=== PATIENT | female | born 1960 | race Caucasian/White ===

== ENCOUNTER 2017-02-16 05:56 | Inpatient (IN) | payer OTHER ==
[2016-12-25 11:50] VITALS: BMI 31.0
--- NOTE | 2016-12-25 12:23 | PAT Medication Instructions ---
Service Date Dec 25, 2016. Current Home Medication List Acetaminophen (Tylenol), 500 MG PO PRN Medication Instructions For Your Scheduled Surgery - Take the following medications the morning of surgery with a sip of water OTHERWISE NOTHING TO EAT OR DRINK AFTER MIDNIGHT: Acetaminophen (Tylenol), 500 MG PO PRN (may take if needed up to 4 hours prior to surgery) If you have any questions please call us at [phone] or [phone] or [phone]
--- NOTE | 2016-12-25 12:55 | DIAGNOSTIC IMAGING REPORT ---
CHEST PREADMISSION(PA/LAT) HISTORY: 56 years-old Female PAT preadmission exam. No acute chest complaints. COMPARISON: None available TECHNIQUE: Frontal and lateral views of the chest FINDINGS: Cardiomediastinal and hilar silhouettes are within normal limits. No pneumothorax, pleural effusion, focal airspace consolidation or overt pulmonary edema. Multilevel degenerative changes of the spine. Cholecystectomy clips. IMPRESSION: No acute cardiopulmonary process. The above report was generated using voice recognition software. It may contain grammatical, syntax or spelling errors. Electronically signed by: Rajiv Oshea M.D. 12/25/2016 12:54 PM Dictated Date/Time: 12/25/2016 12:51 PM
[2016-12-25 13:05] LABS: BASO % 0.7 %; BASO ABS # 0.04 K/uL (0-0.2); COMPLETE YES; EOS % 0.9 %; HEMATOCRIT 43.6 % (37-47); IG% 0.2 %; LYMPH % 38.6 %; LYMPH ABS # 2.15 K/uL (1.2-3.4); MEAN CELL VOLUME 94.4 fL (80-100); MEAN CORPUSCULAR HEMOGLOBIN 32.3 pg (25-34); MEAN CORPUSCULAR HGB CONC 34.2 g/dl (32-36); MEAN PLATELET VOLUME 11.1 fL (7.4-10.4); MONO % 5.4 %; NEUT % 54.2 %; PLATELET COUNT 151 K/uL (130-400); RED BLOOD COUNT 4.62 M/uL (4.2-5.4); WHITE BLOOD COUNT 5.57 K/uL (4.8-10.8)
[2016-12-25 13:15] LABS: BUN/CREATININE RATIO 8.9 (10-20); CALCIUM 8.9 mg/dl (8.5-10.1); CREATININE 0.94 mg/dl (0.60-1.20); POTASSIUM 3.9 mmol/L (3.5-5.1)
[2016-12-25 13:17] LABS: URINE APPEARANCE CLEAR (CLEAR); URINE BILIRUBIN NEG (NEG); URINE COLOR YELLOW; URINE EPITHELIAL CELL AUTO >30 /lpf (0-5); URINE NITRITE NEG (NEG); URINE PH 5.5 (4.5-7.5); URINE SPECIFIC GRAVITY 1.015 (1.000-1.030); UROBILINOGEN NEG (NEG)
[2016-12-25 13:18] LABS: MANUAL MICROSCOPIC REQUIRED? NO; PARTIAL THROMBOPLASTIN RATIO 1.1; PROTHROMBIN TIME (PATIENT) 10.6 SECONDS (9.0-12.0); REVIEW REQ? NO
[2016-12-25 13:30] LABS: ESTIMATED AVERAGE GLUCOSE 105 mg/dl; HA1C FLAG Normal (Normal)
--- NOTE | 2016-12-30 13:36 | HISTORY & PHYSICAL EXAMINATION ---
DATE OF ADMISSION: 01/19/2017 CHIEF COMPLAINT: Bilateral knee pain. HISTORY OF PRESENT ILLNESS: Ms. Lunsford is a 56-year-old female with a long-term history of bilateral knee pain. She states her left knee has always bothered her on and off over the years. Right knee was injured when she fell at work in September of 2016 at a personal [employer]. The patient has been through injections, bracing, NSAIDs and physical therapy without relief. She has failed conservative treatment and is scheduled for bilateral knee replacement. PAST MEDICAL HISTORY: Anxiety. She denies heart disease, diabetes or DVT. PAST SURGICAL HISTORY: Cholecystectomy and tubal ligation. SOCIAL HISTORY: The patient drinks 5 drinks per week. She smokes half pack a day x15 years. She lives in a single story home in [place]. She is currently staying with her son and his . Locally, they have no restrictions. FAMILY HISTORY: Negative for DVT. MEDICATIONS: None. ALLERGIES: None. REVIEW OF SYSTEMS: See HPI. Ten other systems reviewed, all negative. PHYSICAL EXAMINATION: VITAL SIGNS: Height 6 feet 1 inch, weight 240 pounds, and BMI 32. GENERAL: This is a well-developed and well-nourished female who is alert and oriented x3. Mood and affect are appropriate. HEENT: Normocephalic and atraumatic. Mucous membranes are moist and intact. NECK: Supple without lymphadenopathy. HEART: Regular rate and rhythm without murmurs, rubs or gallops. LUNGS: Clear to auscultation without wheezes or rhonchi. ABDOMEN: Soft and nontender. Bowel sounds are equal and active. EXTREMITIES: No ecchymosis, redness or warmth. Right knee shows varus deformity. Range of motion is from 3-110 degrees with +1 laxity. She has moderate effusion. She is neurovascularly intact. Left knee shows varus deformity. Range of motion is from 10-110 degrees with no laxity. She has moderate effusion. She is neurovascularly intact. X-RAY EXAMINATION: AP and lateral views show joint space narrowing and osteophyte formation. IMPRESSION: Degenerative joint disease, bilateral knees. PLAN: The patient will be admitted for bilateral total knee arthroplasty. We discussed smoking cessation. She is going to plan on aspirin for DVT prophylaxis. She is going to have home physical therapy in [place] with her family postoperatively.
--- NOTE | 2017-02-15 12:01 | HISTORY & PHYSICAL EXAMINATION ---
DATE OF ADMISSION: 02/16/2017 PREOPERATIVE HISTORY AND PHYSICAL HISTORY OF PRESENT ILLNESS: The patient presents for left total knee arthroplasty. She has failed attempts at conservative management. She presents with severe tricompartmental degenerative joint disease involving her left knee. She is a 56-year-old white female with well known history of knee pain. She states he left knee does always bother her, off and on over the years. She has had previous right knee complaints as well. Her left knee is the worse. PAST MEDICAL HISTORY: Significant for anxiety. She denies heart disease, diabetes or DVT. Past medical history is otherwise unremarkable. PAST SURGICAL HISTORY: Significant for cholecystectomy, tubal ligation. SOCIAL HISTORY: The patient relates drinking 5 drinks per week. She smokes a half a pack of cigarettes a day for 15 years. She lives in a single chan home She is currently staying with her son FAMILY HISTORY: Otherwise, negative for DVT. MEDICATIONS: None. ALLERGIES: None. REVIEW OF SYSTEMS: Otherwise, unremarkable. See history of present illness for pertinent positives. PHYSICAL EXAMINATION: GENERAL: Reveals a very pleasant 6 feet 1 inch, 240-pound white female, 56 years old, alert and oriented x3. HEENT: Atraumatic, normocephalic. HEART: Show regular at 70 beats per minute. No murmurs noted. LUNGS: Clear. No rales, rhonchi, or wheezes noted. ABDOMEN: Soft, nontender, nondistended. Bowel sounds are present in all 4 quadrants. RECTAL: No rectal examination was performed. MUSCULOSKELETAL: Consistent with that of a painful left knee with DJD. The patient has failed attempts at conservative management. IMAGING DATA: X-rays revealed there to be evidence of DJD, subchondral sclerosis, osteophyte formation and marginal osteophytes and subchondral cystic changes. PLAN: Total knee arthroplasty, postoperative pain management, DVT prophylaxis, activity modification. MTDD
[2017-02-16] VITALS (9 sets, daily range): BP systolic 97–122; BP diastolic 60–76; PULSE 57–71; TEMP 36.5–36.9; O2SAT 94–98; Ht 185.4 cm; Wt 104.5 kg
[~2017-02-16] VITALS: Ht 185.4 cm; Wt 104.5 kg
[~2017-02-16 05:56] MED LIST: ACET-1256 PO
[2017-02-16] MEDS ORDERED: SCOPOLAMINE 1.5 MG TDSY TD SCH (06:00)
[2017-02-16] MEDS ORDERED: CEFAZOLIN 2000MG IV PUSH 10 ML IV SCH (06:00)
[2017-02-16] MEDS ORDERED: ACETAMINOPHEN 500 MG TAB PO SCH (06:00)
[2017-02-16] MEDS ORDERED: ROPIVACAINE 5MG/ML 30 ML 150 MG, BUPIVACAINE 0.5% MPF INJ 30 ML, EpINEphrine HCL INJ 0.... INFIL SCH ×8 (06:00)
[2017-02-16] MEDS ORDERED: GABAPENTIN 300 MG CAP PO SCH (06:00)
[2017-02-16] MEDS ORDERED: FAMOTIDINE 20 MG TAB PO SCH (06:00)
[2017-02-16] MEDS ORDERED: DEXAMETHASONE 4 MG TAB PO SCH (06:00)
[2017-02-16] MEDS ORDERED: CeleBREX 200 MG CAP PO SCH (06:00)
[2017-02-16] MEDS ORDERED: LACTATED RINGER'S 1000ML IV SCH (06:00)
[2017-02-16] MEDS ORDERED: METOCLOPRAMIDE HCL 10 MG TAB PO SCH (06:00)
[2017-02-16] MEDS ORDERED: LACTATED RINGER'S 1000ML 500 ML IV ONE (06:00)
[2017-02-16] MEDS ORDERED: LACTATED RINGER'S 1000ML 1,000 ML IV SCH (06:00)
[2017-02-16] MEDS ORDERED: BUPIVACAINE 0.5 % 5 MG/1 ML PF 10ML VIAL ONE (06:40)
[2017-02-16] MEDS ORDERED: BUPIVACAINE 0.25% 30 ML VIAL ONE (06:40)
--- NOTE | 2017-02-16 07:15 | History & Physical Bridge Note ---
H&P Re-Evaluation Bridge Note: I have examined the patient, reviewed the History & Physical and in the interval since the performance of the History & Physical I have noted the following changes of clinical significance: No changes noted
[2017-02-16] MEDS ORDERED: ORTHO JOINT ANESTHETIC ONE (07:45)
[2017-02-16] MEDS ORDERED: BACITRACIN 50000 UNIT VIAL ONE (07:46)
[2017-02-16] MEDS ORDERED: POVIDONE-IODINE OP SOLN 30 ML BTL ONE (07:46)
[2017-02-16] MEDS: TRANEXAMIC ACID INJ 1,000 MG in SYRINGE 0 ML IV SCH ×2 (07:47→12:04)
[2017-02-16] MEDS ORDERED: FENTANYL CITRATE INJ 50 MCG/1 ML 2 ML VIAL ONE (07:47)
[2017-02-16] MEDS ORDERED: MIDAZOLAM HCL 1 MG/ML 2ML VIAL ONE ×2 (07:47)
--- NOTE | 2017-02-16 08:15 | History & Physical Bridge Note ---
H&P Re-Evaluation Bridge Note: I have examined the patient, reviewed the History & Physical and in the interval since the performance of the History & Physical I have noted the following changes of clinical significance: the patient will undergo bilateral total knee arthroplasty
--- NOTE | 2017-02-16 08:18 | History and Physical ---
History & Physical Date Feb 16, 2017. Chief Complaint Patient presents with severe Tri-Chlor milligrams degenerative joint disease of bilateral knees for bilateral total knee arthroplasty patient still tends to conservative management including physical therapy anti-inflammatories relative rest activity modification presents for total knee arthroplasty bilaterally History of Present Illness The patient is a 56 year old female with complaints of bilateral knee DJD she's failed attempts at conservative management presents for bilateral total knee arthroplasty Additional History Hepatic Disease: No Endocrine Disorder: No Kidney Disease: No Hypertension: Yes Heart Disease: No Bleeding Tendencies: No Infectious Diseases: No Allergies Coded Allergies: No Known Allergies (Unverified , 02/16/17) Home Medications Scheduled Acetaminophen (Tylenol), 500 MG PO PRN Physical Examination Skin: warm/dry, no rash Eyes: normal inspection, EOMI, sclerae normal ENT: normal ENT inspection, pharynx normal Head: normocephalic, atraumatic Neck: supple, no adenopathy, trachea midline Respiratory/Chest: lungs clear, normal breath sounds, no respiratory distress Cardiovascular: regular rate, rhythm, no edema, no murmur Abdomen / GI: normal bowel sounds, non tender Back: normal inspection Extremities: + pertinent finding (severe end-stage DJD bilateral knees) Diagnosis Patient presents with severe end-stage DJD bilateral knees for bilateral total knee arthroplasty Plan of Treatment Patient presents for bilateral total knee arthroplasty postoperative pain management DVT prophylaxis and physical therapy
[2017-02-16] MEDS ORDERED: ATROPINE SULFATE 0.1 MG/ML 5ML SYR IV PRN (08:45)
[2017-02-16] MEDS ORDERED: EpHEDrine SULFATE INJ 50 MG/ML AMP IV PRN (08:45)
[2017-02-16] MEDS ORDERED: ONDANSETRON INJ 2 MG/ML 2 ML VIAL IV PRN (08:45)
[2017-02-16] MEDS ORDERED: FENTANYL CITRATE INJ 50 MCG/1 ML 2 ML VIAL IV PRN (08:45)
[2017-02-16] MEDS ORDERED: PROPOFOL IV EMULSION 10 MG/ML 20 ML VIAL IV ONE (09:03)
[2017-02-16] MEDS ORDERED: DEXAMETHASONE SOD INJ 4 MG/ML VIAL ONE (09:04)
[2017-02-16] MEDS ORDERED: ONDANSETRON INJ 2 MG/ML 2 ML VIAL ONE (09:04)
--- NOTE | 2017-02-16 10:26 | [facility] Operative Report ---
Operative Report Operative Date Feb 16, 2017. Pre-Operative Diagnosis End-Stage Degenerative Joint Disease, Blateral Knees Post-Operative Diagnosis End-Stage Degenerative Joint Disease, Blateral Knees Procedure(s) Performed Bilateral Total Knee Arthroplasty utilizing [employer] journey to patient-matched total knee arthroplasty size right 6 femur 5 tibia 11 poly-35 oval patella left size 6 femur 5 tibia 10 Vanessa [address] Sorenson [employer] Supervisor Surgeon(s) Vincent Solorio PA-C Estimated Blood Loss 5 mL right 5 mL left Findings Presents with severe end-stage DJD bilateral knees not responsive to conservative therapy and flexion contracture 25 preop flexion 210 she's failed attempts at conservative management including physical therapy anti- inflammatories relative rest activity modification she has preoperative subchondral sclerosis cystic changes osteophytes on the bone changes Specimens A: Right Knee Bone and Tissue B: Left Knee Bone and Tissue Complication(s) None Disposition Recovery Room / PACU Indications Patient presents after failing attempts at conservative management including physical therapy anti-inflammatories relative rest activity modification presents for bilateral total knee arthroplasty Description of Procedure After proper prepping and draping of the bilateral lower extremities, an anterior midline incision was made over the region of the extensor extensor mechanism of the left knee. After meticulous hemostasis was obtained and maintained in subcutaneous tissues a medial parapatellar incision was made The patella was subluxed lateralward the medial lateral gutter were cleaned from any hypertrophic synovitis and scar tissue of the distal femoral block was placed and the distal femoral osteotomy cut was made subsequently the chamfers anterior and posterior osteotomy cuts were made utilizing the 4-in-1 block the tibia was subsequently subluxed anteriorward medial and ateral meniscal remnants were excised in their entirety remnants of the anterior and posterior cruciate ligaments were excised in their entirety excellent exposure of the proximal tibia was obtained the tibial osteotomy guide was placed on the proximal tibial osteotomy cut was made once again the knee was irrigated with copious amounts of sterile saline solution the patella was subsequently everted lateralward thickened scar tissue around the patella was removed the patella was subsequently cut utilizing a freehand technique and was drilled prepared for final preparation and placement of patella socially flexion-extension gaps were checked and the equal and symmetric trials were placed to the appropriate femoral and tibial trials with poly-spacer being placed for equal flexion and extension gaps and full range of motion including extension to 0 and flexion to 140 the trial components after having been taken to recovery range of motion was subsequently removed meticulous hemostasis was obtained and maintained subsequently a knee block injection of joint cocktail including ropivacaine 0.5 % 150 mg. Bupivacaine 0.5% epinephrine 1-200,030 mL's toradol 30 mg dexamethasone 4 mg ketamine 10 mg clonidine 100 micrograms normal saline solution 30 mg was infiltrated into the soft tissues of the posterior knee medial lateral gutters and periosteal synovium special attention was paid to protect neurovascular structures at all times subsequently trial components having been removed the knee was irrigated with sterile saline solution. debris was removed the proximal tibia was subsequently prepared and was made ready for the placement of the tibial component tibial component was also cemented and tamped into position the femoral component was subsequently placed and cemented in the position the patellar component was subsequently cemented in position because hemostasis once again obtained and maintained wound having been thoroughly irrigated with debridement and debridement lavage was performed as well as a medial parapatellar incision closed with #1 Vicryl in interrupted fashion subcutaneous was closed with #2 Vicryl skin was closed with skin clips Next, an anterior midline incision was made over the region of the extensor extensor mechanism of the right knee. After meticulous hemostasis was obtained and maintained in subcutaneous tissues a medial parapatellar incision was made The patella was subluxed lateralward the medial lateral gutter were cleaned from any hypertrophic synovitis and scar tissue of the distal femoral block was placed and the distal femoral osteotomy cut was made subsequently the chamfers anterior and posterior osteotomy cuts were made utilizing the 4-in-1 block the tibia was subsequently subluxed anteriorward medial and ateral meniscal remnants were excised in their entirety remnants of the anterior and posterior cruciate ligaments were excised in their entirety excellent exposure of the proximal tibia was obtained the tibial osteotomy guide was placed on the proximal tibial osteotomy cut was made once again the knee was irrigated with copious amounts of sterile saline solution the patella was subsequently everted lateralward thickened scar tissue around the patella was removed the patella was subsequently cut utilizing a freehand technique and was drilled prepared for final preparation and placement of patella socially flexion-extension gaps were checked and the equal and symmetric trials were placed to the appropriate femoral and tibial trials with poly-spacer being placed for equal flexion and extension gaps and full range of motion including extension to 0 and flexion to 140 the trial components after having been taken to recovery range of motion was subsequently removed meticulous hemostasis was obtained and maintained subsequently a knee block injection of joint cocktail including ropivacaine 0.5 % 150 mg. Bupivacaine 0.5% epinephrine 1-200,030 mL's toradol 30 mg dexamethasone 4 mg ketamine 10 mg clonidine 100 micrograms normal saline solution 30 mg was infiltrated into the soft tissues of the posterior knee medial lateral gutters and periosteal synovium special attention was paid to protect neurovascular structures at all times subsequently trial components having been removed the knee was irrigated with sterile saline solution. debris was removed the proximal tibia was subsequently prepared and was made ready for the placement of the tibial component tibial component was also cemented and tamped into position the femoral component was subsequently placed and cemented in the position the patellar component was subsequently cemented in position because hemostasis once again obtained and maintained wound having been thoroughly irrigated with debridement and debridement lavage was performed as well as a medial parapatellar incision closed with #1 Vicryl in interrupted fashion subcutaneous was closed with #2 Vicryl skin was closed with skin clips.. PA-C was necessary for prepping and drapping as well as wound closure of deep fascia Sub cutaneous tissue and skin and was necessary for the case. A sterile compressive dressings were placed, patient was taken to recovery in stable condition of report dictated by Delta I attest to the content of the Intraoperative Record and any orders documented therein. Any exceptions are noted below. I attest to the content of the Intraoperative Record and any orders documented therein. Any exceptions are noted below.
[2017-02-16] MEDS ORDERED: MoRPHine SULFATE 2 MG/ML CARP IV PRN (11:15)
[2017-02-16] MEDS ORDERED: ALUMINUM/MAGNESIUM/SIMETH (MAALOX MAX) 30 ML UDC PO PRN (11:15)
[2017-02-16] MEDS ORDERED: MAGNESIUM HYDROXIDE SUSP 30 ML UDC PO PRN (11:15)
--- NOTE | 2017-02-16 11:31 | DIAGNOSTIC IMAGING REPORT ---
R KNEE 1 OR 2 VIEWS ROUTINE, L KNEE 1 OR 2 VIEWS ROUTINE CLINICAL HISTORY: 56 years-old Female presenting with AP/LATERAL IN PACU RIGHT KNEE. TECHNIQUE: Frontal and crosstable lateral views of the bilateral knees were obtained. COMPARISON: None. FINDINGS: Right knee: Total right knee arthroplasty with patellar resurfacing. Expected intra-articular and soft tissue emphysema. An overlying surgical drain is noted. No hardware complication, malalignment, or fracture. Left knee: Postsurgical changes of total left knee arthroplasty with patellar resurfacing. Expected intra-articular and soft tissue emphysema. Overlying surgical drain noted. No hardware complication, malalignment, or fracture. IMPRESSION: Expected postsurgical appearance status post bilateral total knee arthroplasties with patellar resurfacing. Electronically signed by: Teodoro Mcallister M.D. 02/16/2017 11:30 AM Dictated Date/Time: 02/16/2017 11:28 AM
[2017-02-16] MEDS ORDERED: MoRPHine SULFATE 10 MG/ML CARP/VIAL IV PRN (13:15)
[2017-02-16] MEDS ORDERED: MoRPHine SULFATE 4 MG/ML 1 ML CARP\\VIAL IV PRN (13:15)
--- NOTE | 2017-02-16 13:38 | Anesthesiology Progress Note ---
Anesthesia Post Op Note Date & Time Feb 16, 2017 at 13:37 Vital Signs Pain Intensity: 0 Vital Signs Past 12 Hours Date Time Temp Pulse Resp B/P (MAP) Pulse Ox O2 Delivery O2 Flow Rate FiO2 02/16/17 12:41 63 18 98/66 (77) 98 02/16/17 11:50 36.5 60 16 110/71 (84) 97 Nasal Cannula 2.0 02/16/17 11:50 Nasal Cannula 2.0 02/16/17 11:50 Nasal Cannula 2.0 02/16/17 11:40 36.2 64 18 116/69 99 Nasal Cannula 2 02/16/17 11:30 60 15 122/79 98 Nasal Cannula 2 02/16/17 11:20 63 18 125/78 98 Nasal Cannula 2 02/16/17 11:10 64 12 127/65 98 Nasal Cannula 2 02/16/17 11:04 36.5 70 19 132/64 95 Nasal Cannula 2 02/16/17 06:41 36.8 71 18 122/76 97 Room Air Notes Mental Status: alert / awake / arousable, participated in evaluation Pt Amnestic to Procedure: Yes Nausea / Vomiting: adequately controlled Pain: adequately controlled Airway Patency, RR, SpO2: stable & adequate BP & HR: stable & adequate Hydration State: stable & adequate Neuraxial Anesthesia: was administered, sensory block is resolving Anesthetic Complications: no major complications apparent
[2017-02-16] MEDS: D5W AND 1/2NSS + 20MEQ KCL 1,000 ML IV SCH (14:13)
[2017-02-16] MEDS: ACETAMINOPHEN 500 MG TAB PO SCH ×2 (15:03→21:36)
[2017-02-16] MEDS: KETOROLAC TROMETHAMINE 30 MG/ML VIAL IV. SCH ×2 (15:45→21:35)
[2017-02-16] MEDS: CEFAZOLIN IV 2,000 MG in SYRINGE 0 ML IV SCH (15:45)
[2017-02-16] MEDS: CHECK SCOPOLAMINE PATCH PLACEMENT SCH (15:45)
[2017-02-16] MEDS: ONDANSETRON INJ 2 MG/ML 2 ML VIAL IV PRN (16:44)
[2017-02-16] MEDS: FERROUS GLUCONATE 324 MG TAB PO SCH (17:53)
[2017-02-16] MEDS: OXYCODONE HCL 10 MG TABCR (OXYCONTIN) PO SCH (20:38)
[2017-02-16] MEDS: SENNA 8.6 MG TAB PO SCH (20:39)
[2017-02-16] MEDS: DOCUSATE SODIUM 100 MG CAP PO SCH (20:39)
[2017-02-17] MEDS: OXYCODONE HCL IR 5 MG TAB (IMMEDIATE RELEASE) PO PRN ×2 (00:02→17:05)
[2017-02-17] MEDS: CEFAZOLIN IV 2,000 MG in SYRINGE 0 ML IV SCH (00:06)
[2017-02-17] MEDS: D5W AND 1/2NSS + 20MEQ KCL 1,000 ML IV SCH ×2 (00:06→08:44)
[2017-02-17] MEDS: CHECK SCOPOLAMINE PATCH PLACEMENT SCH ×3 (00:07→16:10)
[2017-02-17 03:40] VITALS: BP 89/53; PULSE 63; TEMP 36.6; O2SAT 95
[2017-02-17] MEDS: KETOROLAC TROMETHAMINE 30 MG/ML VIAL IV. SCH ×4 (04:31→21:36)
[2017-02-17] MEDS: ACETAMINOPHEN 500 MG TAB PO SCH ×3 (05:59→21:36)
[2017-02-17 06:56] LABS: HEMATOCRIT 29.5 % (37-47); MEAN CELL VOLUME 95.5 fL (80-100); MEAN CORPUSCULAR HGB CONC 33.6 g/dl (32-36); MEAN PLATELET VOLUME 10.8 fL (7.4-10.4); PLATELET COUNT 128 K/uL (130-400); RED BLOOD COUNT 3.09 M/uL (4.2-5.4); WHITE BLOOD COUNT 10.35 K/uL (4.8-10.8)
[2017-02-17 07:29] LABS: BUN/CREATININE RATIO 11.8 (10-20); CALCIUM 7.9 mg/dl (8.5-10.1); CREATININE 1.08 mg/dl (0.60-1.20); POTASSIUM 4.2 mmol/L (3.5-5.1)
[2017-02-17 08:02] VITALS: BP 100/62; PULSE 57; TEMP 36.7; O2SAT 97
--- NOTE | 2017-02-17 08:13 | Orthopedic Progress Note ---
Orthopedic Progress Note Date of Service Feb 17, 2017. Subjective Post OP Day: 1 Reports: feeling well, Denies: chest pain, SOB, nausea / vomiting, light headedness, calf pain Objective calves soft nontender, N/V intact, dressing C/D/I, A&O x3, toes mobile, hemovac drainage (R 375/225 PER SHIFT; L 325/300 PER SHIFT) Date Time Temp Pulse Resp B/P (MAP) Pulse Ox O2 Delivery O2 Flow Rate FiO2 02/17/17 08:02 36.7 57 18 100/62 (75) 97 Room Air 02/17/17 03:40 36.6 63 17 89/53 (65) 95 02/16/17 23:45 94 Room Air 02/16/17 23:05 36.7 59 17 103/66 (78) 94 Room Air 02/16/17 20:44 36.7 59 18 97/60 (72) 95 Room Air 02/16/17 15:40 94 Room Air 02/16/17 14:58 36.9 57 18 106/63 (77) 96 Nasal Cannula 2.0 02/16/17 13:50 65 18 110/65 (80) 02/16/17 12:41 63 18 98/66 (77) 98 02/16/17 11:50 36.5 60 16 110/71 (84) 97 Nasal Cannula 2.0 02/16/17 11:50 Nasal Cannula 2.0 02/16/17 11:50 Nasal Cannula 2.0 02/16/17 11:40 36.2 64 18 116/69 99 Nasal Cannula 2 02/16/17 11:30 60 15 122/79 98 Nasal Cannula 2 02/16/17 11:20 63 18 125/78 98 Nasal Cannula 2 02/16/17 11:10 64 12 127/65 98 Nasal Cannula 2 02/16/17 11:04 36.5 70 19 132/64 95 Nasal Cannula 2 Laboratory Results 24 Hours: Test 02/17/17 05:50 Hematocrit 29.5 % Hemoglobin 9.9 g/dL Assessment & Plan Assessment: POD#1 SP BL TKAS Plan: PT/OT DVT PROPH- LOVENOX PAIN MANAGEMENT- ADAM, TYLENOL, CELEBREX DC PLANNING- HOME WITH HOME PT LIKELY TOMORROW VS WEDNESDAY. PATIENT HAS TO DRIVE TO [place]. Inhouse Planning Pain Management: Celebrex, PO Tylenol, Oxy IR DVT Prophylaxis: TEDs, SCDs, Lovenox
[2017-02-17] MEDS: OXYCODONE HCL 10 MG TABCR (OXYCONTIN) PO SCH ×2 (08:34→21:12)
[2017-02-17] MEDS: FERROUS GLUCONATE 324 MG TAB PO SCH ×3 (08:34→17:39)
[2017-02-17] MEDS: PANTOprazole SOD 40 MG TAB PO SCH (08:35)
[2017-02-17] MEDS: DOCUSATE SODIUM 100 MG CAP PO SCH ×2 (08:35→21:12)
[2017-02-17] MEDS: MULTIVITAMIN TAB PO SCH (08:35)
[2017-02-17] MEDS: ENOXAPARIN 40 MG/0.4 ML SYR SQ SCH (08:37)
[2017-02-17 11:08] VITALS: BP 108/68; PULSE 65; O2SAT 95
[2017-02-17 12:11] VITALS: BP 101/68; PULSE 67; TEMP 36.6; O2SAT 99
--- NOTE | 2017-02-17 12:46 | Anesthesiology Progress Note ---
Anesthesia Post Op Note Date & Time Feb 17, 2017 at 12:45 Vital Signs Pain Intensity: 2.0 Vital Signs Past 12 Hours Date Time Temp Pulse Resp B/P (MAP) Pulse Ox O2 Delivery O2 Flow Rate FiO2 02/17/17 12:11 36.6 67 18 101/68 (79) 99 Room Air 02/17/17 08:02 36.7 57 18 100/62 (75) 97 Room Air 02/17/17 07:45 Room Air 02/17/17 03:40 36.6 63 17 89/53 (65) 95 Notes Mental Status: alert / awake / arousable, participated in evaluation Pt Amnestic to Procedure: Yes Nausea / Vomiting: adequately controlled Pain: adequately controlled Airway Patency, RR, SpO2: stable & adequate BP & HR: stable & adequate Hydration State: stable & adequate Neuraxial Anesthesia: sensory block resolved Anesthetic Complications: no major complications apparent
[2017-02-17 15:36] VITALS: BP 109/59; PULSE 66; TEMP 36.6; O2SAT 94
[2017-02-17] MEDS: ONDANSETRON INJ 2 MG/ML 2 ML VIAL IV PRN (17:05)
[2017-02-17] MEDS: SENNA 8.6 MG TAB PO SCH (21:00)
[2017-02-17 23:31] VITALS: BP 116/68; PULSE 69; TEMP 36.9; O2SAT 95
[2017-02-18] MEDS: KETOROLAC TROMETHAMINE 30 MG/ML VIAL IV. SCH ×2 (04:25→09:51)
[2017-02-18] MEDS: ONDANSETRON INJ 2 MG/ML 2 ML VIAL IV PRN (04:30)
[2017-02-18] MEDS: ACETAMINOPHEN 500 MG TAB PO SCH (06:10)
[2017-02-18 06:48] VITALS: BP 111/65; PULSE 66; TEMP 36.8; O2SAT 96
[2017-02-18] MEDS: OXYCODONE HCL 10 MG TABCR (OXYCONTIN) PO SCH (07:30)
[2017-02-18] MEDS: PANTOprazole SOD 40 MG TAB PO SCH (07:30)
[2017-02-18] MEDS: FERROUS GLUCONATE 324 MG TAB PO SCH (07:30)
[2017-02-18] MEDS: MULTIVITAMIN TAB PO SCH (07:30)
[2017-02-18] MEDS: DOCUSATE SODIUM 100 MG CAP PO SCH (07:30)
[2017-02-18] MEDS: CHECK SCOPOLAMINE PATCH PLACEMENT SCH ×2 (07:30)
[2017-02-18] MEDS: ENOXAPARIN 40 MG/0.4 ML SYR SQ SCH (07:31)
--- NOTE | 2017-02-18 07:55 | Orthopedic Progress Note ---
Orthopedic Progress Note Date of Service Feb 18, 2017. Subjective Post OP Day: 2 Reports: feeling well, Denies: chest pain, SOB, light headedness, calf pain Objective calves soft nontender, N/V intact, capillary refill less than 2 sec., incision C /D/I, A&O x3, toes mobile Date Time Temp Pulse Resp B/P (MAP) Pulse Ox O2 Delivery O2 Flow Rate FiO2 02/18/17 06:48 36.8 66 16 111/65 (80) 96 Room Air 02/18/17 00:30 Room Air 02/17/17 23:31 36.9 69 16 116/68 (84) 95 Room Air 02/17/17 16:00 Room Air 02/17/17 15:36 36.6 66 18 109/59 (76) 94 Room Air 02/17/17 12:11 36.6 67 18 101/68 (79) 99 Room Air 02/17/17 11:08 65 95 02/17/17 08:02 36.7 57 18 100/62 (75) 97 Room Air Assessment & Plan Assessment: POD#2 SP BL TKAS Plan: PT/OT DVT PROPH- LOVENOX PAIN MANAGEMENT- ADAM, TYLENOL, CELEBREX, OXYCONTIN ADDED DC PLANNING- HOME WITH HOME PT LIKELY TODAY. PATIENT HAS TO DRIVE TO [place]. Inhouse Planning Pain Management: Celebrex, PO Tylenol, Oxy IR DVT Prophylaxis: TEDs, SCDs, Lovenox
[2017-02-18] MEDS ORDERED: RXC5 PO (07:58)
[2017-02-18] MEDS ORDERED: ONDA8TAB6 PO (07:58)
[2017-02-18] MEDS ORDERED: CLB200 PO (07:58)
[2017-02-18] MEDS ORDERED: LVNIS40 SQ (07:58)
[2017-02-18] MEDS ORDERED: ACET-1256 PO (07:58)
[2017-02-18] MEDS ORDERED: SENN-61 PO (07:58)
[2017-02-18] MEDS ORDERED: OXYSR10 PO (07:58)
--- NOTE | 2017-02-18 08:00 | Discharge Instructions ---
Discharge Instructions Date of Service Feb 18, 2017. Admission Reason for Admission: Right Knee Osteoarthritis Discharge Discharge Diagnosis / Problem: SP BL TKA Discharge Goals Goal(s): Decrease discomfort, Improve function, Increase independence Activity Recommendations Activity Limitations: per Instructions/Follow-up section . Instructions / Follow-Up Instructions / Follow-Up ACTIVITY RECOMMENDATIONS: SELF CARE INSTRUCTIONS AFTER TOTAL KNEE REPLACEMENT A. You may need to continue a physical therapy program after discharge from the hospital. There are several options available to you. Your doctor will assist you in selecting the best one for you. 1. An out-patient facility 2 to 3 times a week for therapy or home therapy. 2. Continue working on all exercises taught to you in the hospital. Your goals should be to increase bending of your knee to 90 degrees and beyond and to fully straighten your knee. B. You may progress at your own pace from walking with a walker or crutches to a cane; then to no assistive devices. C. Make walking a part of your daily routine. Be up as much as comfortable with rest periods throughout the day. Rest with leg elevation is very important. Use the ice wrap frequently for the first 3-4 weeks. D. There are no restrictions on activities. You may ride in a car, shop, participate in gate keeper and all social activities. E. Wear the long elastic stockings (BENNIE hose) 20 hours a day for 2 weeks after surgery. They can be removed several times a day for laundering and for a bath. F. You may shower, no tub baths until cleared by your doctor. SPECIAL CARE INSTRUCTIONS: VERY IMPORTANT TO READ AND REVIEW A. There are a few signs you need to watch for after you are home. Call [facility] if you notice any of the followin. Increased severe knee pain. Some pain is expected especially when you exercise. 2. Increased swelling in your leg or knee; pain or swelling of the calf muscle in either lower leg. 3. Any fluid drainage from the incision. 4. Shortness of breath or chest pain. B. Please call [facility] at if you have any concerns or questions about your operation or recovery. The doctor or his nurse will return your call promptly. C. You must take antibiotics before dental work, bladder, bowel or other surgery. Your doctor will provide you with a permanent care to carry describing this precaution. IMPORTANT: * REMEMBER TO TAKE LOVENOX INJECTIONS ONCE DAILY X 2 WEEKS. AFTER THE 2 WEEKS ARE COMPLETE, TAKE ASPIRIN 81MG TWICE DAILY FOR AN ADDITIONAL 2 WEEKS. * HIGH RISK PATIENTS MAY BE PRESCRIBED A STRONGER BLOOD THINNER. THIS WILL BE PROVIDED AT DISCHARGE. * CALL IF INCREASED PAIN, REDNESS, DRAINAGE OR FEVER GREATER THAT 101. * WEAR BENNIE HOSE 20 HOURS PER DAY FOR 2 WEEKS. * DERMABOND Prineo- This is a mesh tape dressing that is covered with glue. It should remain in place until the incision is properly healed, usually 10-14 days. This dressing is designed to naturally slough off. You may trim the excess mesh tape as it peels off. Incision may be briefly wet in a shower. Dry immediately by blotting with a clean, dry towel. Do not bath or swim until instructed by your doctor. Do not scratch, rub, or pick at the dressing. Do not apply any topical ointments or lotions until dressing is completely removed and/or instructed by your doctor. There may be a small piece of suture material at one end of your incision. Do not pull or trim this. If it is bothersome or catching on clothing, you may cover it with a band-aid. FOLLOW UP VISIT: If appointment is not already scheduled: Please call [facility] to make a follow-up appointment for 2 weeks after your surgery at . Current Hospital Diet Patient's current hospital diet: Regular Diet Discharge Diet Recommended Diet: Regular Diet Procedures Procedures Performed: Bilateral Total Knee Arthroplasty utilizing [employer] journey to patient-matched total knee arthroplasty size right 6 femur 5 tibia 11 poly-35 oval patella left size 6 femur 5 tibia 10 Vanessa 35 oval patella Pending Studies Studies pending at discharge: no Laboratory Results Hemoglobin A1c Test 12/25/16 12:29 Range/Units Estimated Average Glucose 105 mg/dl Hemoglobin A1c 5.3 4.5-5.6 % Medical Emergencies . Who to Call and When: Medical Emergencies: If at any time you feel your situation is an emergency, please call 911 immediately. . Non-Emergent Contact Non-Emergency issues call your: Surgeon . "Provider Documentation" section prepared by Ashwini Naranjo. . VTE Core Measure Inpt VTE Proph given/why not?: Other Anticoagulation, T.E.D. Stockings, SCD's
[2017-02-18 09:34] VITALS: BP 111/65; PULSE 66; TEMP 36.8; O2SAT 96
[2017-02-18] MEDS: OXYCODONE HCL IR 5 MG TAB (IMMEDIATE RELEASE) PO PRN (09:53)
[2017-02-18 10:31] VITALS: BP 113/64
[2017-02-18] MEDS ORDERED: CeleBREX 200 MG CAP PO SCH (21:00)
== END 2017-02-18 12:54 | disposition home or self-care (01) | DRG 462 ==
LOC: C.ACU 05:56 → C.3E 07:00 → ENRESERV 11:27
PROVIDERS: ADMIT Orthopaedic Surgery; ATTEND Orthopaedic Surgery
PROC: 0SRC0J9 Replacement of Right Knee Joint with Synthetic Substitute, Cemented, Open Approach (ICD-10-PCS; principal; 2017-02-16 08:30)
PROC: 0SRD0J9 Replacement of Left Knee Joint with Synthetic Substitute, Cemented, Open Approach (ICD-10-PCS; principal; 2017-02-16 08:30)
DX: M17.0 Bilateral primary osteoarthritis of knee (principal); F17.210 Nicotine dependence, cigarettes, uncomplicated